=== PATIENT | female | born 1975 | race Two or more races ===

== ENCOUNTER 2024-09-03 10:04 | Emergency (ER) | payer BC, OTHER, SELFPAY ==
--- NOTE | 2024-09-03 | XR_ITS ---
MRI abdomen, without contrast. MRCP Date and time of exam: September 03, 2024 1807 hrs. Indications: Post cholecystectomy, persistent epigastric pain one month, enlarged common bile duct on CT abdomen pelvis study today Technique: Multiple axial and coronal images of the abdomen have been obtained with the Siemens 1.5T MRI scanner. Images obtained included T1 weighted transverse images, T2-weighted transverse images, T2-weighted transverse images fat-suppressed, T2 weighted haste fat suppressed transverse images, T1 weighted images, in and out of phase images, T2-weighted coronal images, breath hold, T2 weighted haze coronal images as well as T2 weighted coronal thick slab images, MRCP. Findings: Liver is irregular in contour with intrahepatic biliary tract dilatation Absent gallbladder Enlarged common bile duct common hepatic duct 12 mm Abrupt termination of the distal common bile duct, consider impacted stone or stricture, clinical correlation advised Negative for pancreatitis Spleen is not enlarged No hydronephrosis Impression: Abnormal extra hepatic biliary tract dilatation with abrupt termination of the distal common bile duct, consider impacted stone in the common bile duct or stricture Recommend ERCP follow-up and stent placement
[2024-09-03 10:06] VITALS: BMI 36.6
[2024-09-03 10:22] VITALS: BP 138/93; PULSE 100; RESP 18; TEMP 37.8; O2SAT 96; BMI 36.4
--- NOTE | 2024-09-03 10:40 | XR_ITS ---
Examination: CT abdomen and pelvis without contrast. Coronal 3-D reconstructions. Sagittal 2-D reconstructions. Date and time of exam:September 03, 2024 1236 hours INDICATIONS: Epigastric pain beginning one week ago CTDI: vol (mGy): 14.9 DLP: (mGycm): 856 Technique: Axial images of the abdomen have been obtained, 3 mm slice thickness Intravenous contrast material has not been administered. Low dose protocols were performed. One or more of the following dose reduction techniques were used; automated exposure control, adjustment of the mA and/or KV according to patient size, use of iterative reconstruction technique. Findings: Fatty infiltration throughout the liver Absent gallbladder Spleen is not enlarged Common bile duct is prominent 11 mm No renal or ureteral calculi, no hydronephrosis Aorta normal size 6 mm fat-containing umbilical hernia No pericecal inflammatory change Normal appendix No pelvic mass Contracted urinary bladder IMPRESSION: Abnormally enlarged common bile duct, recommend hepatobiliary sonography follow-up
--- NOTE | 2024-09-03 10:40 | EKG_ITS ---
[facility] Test Date: 2024-09-03 Pat Name: ROBIN DOMÍNGUEZ Department: Room: - Gender: Female System Admin: : 1975 Requested By: Hi Nolen Order Number: [id number] Reading MD: Hi Nolen Measurements Intervals [place] Rate: 90 P: 32 [place]: 153 QRS: 3 QRSD: 82 T: 10 QT: 338 QTc: 414 Interpretive Statements SINUS RHYTHM POSSIBLE ANTERIOR MYOCARDIAL INFARCTION , PROBABLY OLD [30 ms Q WAVE IN V3/V4, OR R < 0.2 mV IN V4] No previous ECG available for comparison /[id number]/[email or web address]/[id number].pdf
--- NOTE | 2024-09-03 10:53 | PD.EDRME ---
Rapid Medical Screening Exam E Arrival date/time: 09/03/24 10:04 48-year-old female with no known medical history presents to the emergency room with a chief complaint of epigastric 10 out of 10 pain that radiates all throughout her abdomen and her chest. Patient states she is being treated by her primary care provider for gastritis but nothing has worked. Today when she called her primary care provider she was sent to the emergency room for further testing. I have greeted and performed a focused initial assessment of this patient. A comprehensive ED assessment and evaluation of the patient, analysis of all test results, and completion of the medical decision making process will be conducted by additional ED providers. Chief Complaint: Chest Pain Time Seen by Provider: 09/03/24 10:30 Vital signs: Vital Signs Temperature 100.1 F 09/03/24 10:22 Pulse Rate 100 09/03/24 10:22 Respiratory Rate 18 09/03/24 10:22 Blood Pressure 138/93 H 09/03/24 10:22 Pulse Oximetry (%) 96 09/03/24 10:22 Oxygen Delivery Method Room Air 09/03/24 10:22 Vital signs reviewed by provider: Yes
[2024-09-03 11:36] LABS: Collection Type, Urine Clean Catch
[2024-09-03 11:43] LABS: HCG Qualitative,Urine Negative
[2024-09-03 11:52] LABS: Basophils % (Auto) 0 % (0-2.5); Eosinophils % (Auto) 0 % (0-10); Hemoglobin 14.4 g/dL (12.0-16.0); Immature Granulocytes % (Auto) 0 % (0-0); Immature Granulocytes Auto 0.04 Thou/mm3 (0.00-0.00); Lymphocytes # (Auto) 0.6 Thou/mm3 (1.0-4.8); Lymphocytes % (Auto) 5 % (10-50); Mean Corpuscular HGB Conc 33.5 g/dl (31.0-37.0); Mean Corpuscular Hemoglobin 28.6 pg (25.0-35.0); Mean Corpuscular Volume 85 fL (80-100); Monocytes # (Auto) 0.7 Thou/mm3 (0.0-0.8); Monocytes % (Auto) 5 % (0-12); Neutrophils # (Auto) 11.8 Thou/mm3 (1.8-7.7); Neutrophils % (Auto) 89 % (37-80); Nucleated Red Blood Cell % 0 /100 WBC (0); Platelet Count 342 Thou/mm3 (140-440); RDW Standard Deviation 41.9 fL (36.4-46.3); Red Blood Count 5.04 Miln/mm3 (4.00-5.20); White Blood Count 13.2 Thou/mm3 (3.6-11.0)
[2024-09-03 11:53] LABS: B-Type Natriuretic Peptide < 20 pg/mL (0-100)
[2024-09-03 11:56] LABS: Bilirubin,Urine 4+ (Negative); Blood,Urine 1+ (Negative); Color,Urine Drk-Yellow (Lt Yel-Yel); Glucose, Urine Negative (Negative); Ketones,Urine Negative (Negative); Leukocyte Esterase,Urine Negative (Negative); Nitrite,Urine Negative (Negative); Protein,Urine 1+ (Neg - Trace); RBC,Urine 3 /hpf (0-3); Specific Gravity,Urine 1.026 (1.001-1.035); Squamous Epithelial Cell,Urine 10 /hpf (0-5); WBC,Urine 6 /hpf (0-5)
[2024-09-03 12:10] LABS: Alanine Aminotransferase 491 U/L (10-49); Albumin, Serum 4.9 gm/dL (3.5-5.0); Albumin/Globulin Ratio 1.5 (1.2-2.2); Alkaline Phosphatase 1123 U/L (46-116); Anion Gap 9 (7-16); Aspartate Amino Transferase 291 U/L (0-34); BUN/Creatinine Ratio 15 Ratio (12-20); Bilirubin,Total 8.1 mg/dL (0.3-1.2); Blood Urea Nitrogen 12 mg/dL (9-23); Calcium 9.9 mg/dL (8.3-10.6); Calcium (Corrected) 9.9 mg/dL (8.5-10.1); Carbon Dioxide 27.5 mMol/L (20.0-31.0); Chloride 100 mMol/L (98-107); Creatinine (Component) 0.8 mg/dL (0.6-1.3); Globulin 3.2 gm/dL (2.3-3.5); Glucose 133 mg/dL (74-106); Lipase 40 U/L (12-53); Osmolality,Calculated 273 (275-295); Potassium 4.4 mMol/L (3.4-5.1); Sodium 136 mMol/L (136-145); Total Protein 8.1 gm/dL (5.7-8.2); Troponin I < 0.002 ng/mL (0.0-0.045); eGFR > 60 See Note
[2024-09-03 12:31] LABS: Clarity,Urine Hazy (Clear/Hazy)
--- NOTE | 2024-09-03 14:59 | PD.EDABDPN ---
ED Abdominal Pain RME/HPI General Chief Complaint: Chest Pain Stated complaint: CHEST PAIN X1MO WITH COUGH, WANTS XRAY/BLOOD WORK Time seen by provider: 09/03/24 10:30 Arrival date/time: 09/03/24 10:04 RME / HPI RME / HPI narrative: 48-year-old female patient with no significant past medical history, s/p cholecystectomy, was brought in for evaluation regarding epigastric pain. She been having epigastric pain for the last 1 month, getting worse for the last 1 week, at this time it continues, severity moderate. Patient was seen by PCP and was started on Protonix thinking it was gastritis however nothing is working. Patient denies any fever denies any vomiting denies any other complaints no medication was taken prior to arrival. Related Data Allergies Allergy/AdvReac Type Severity Reaction Status Date / Time No Known Drug Allergies Allergy Unknown Verified 09/03/24 10:06 Review of Systems Review of Systems Narrative Review of Systems: Review of system reviewed and within normal limits except mentioned in HPI ED Exam Narrative Physical exam: VITAL SIGNS: Reviewed. GENERAL APPEARANCE: Alert and interactive, follows commands, no acute distress, HEAD AND FACE: Non-traumatic. ENT: PERRL, pink conjunctivitis, eyelid no trauma, Mucous membrane moist. NECK: Supple, nontender, no nuchal rigidity. CHEST: No tenderness, no crepitus, no paradoxical movement, no retractions. LUNGS: Clear, well ventilated, symmetric, no rales, no wheezing, no ronchi, no stridor, good breath sounds bilaterally. HEART: Regular rate, regular rhythm, no murmur, no gallops. ABDOMEN: Soft, positive bowel sounds, nondistended, no guarding, epigastric tenderness, no rebound, no masses, RECTAL: Deferred. GENITAL: Deferred. NEUROLOGICAL: Gross motor function intact sensory function intact, Appropriate for age. MUSCULOSKELETAL: low back nontender, full range of motion. EXTREMITIES: Nontender, full range of motion. SKIN: Color pink, dry, no rash, no lacerations, no abrasions, no contusions. LYMPHATICS: Deferred. Course Quality Measures none Orders Category Date Time Status EKG (ED ONLY) *Do not use* NOW Care 09/03/24 10:40 Completed MRI Screening NOW Care 09/03/24 14:[address] abdomen pelvis wo con Stat Exams 09/03/24 10:40 Completed EKG (ED Only) Stat Exams 09/03/24 10:40 Draft MR MRCP Stat Exams 09/03/24 Completed BNP [B-Type Natriuretic Peptide] Stat Lab 09/03/24 11:01 Completed CBC Stat Lab 09/03/24 11:01 Completed CMP [Comprehensive Metabolic Panel] Stat Lab 09/03/24 11:01 Completed HCG Qualitative,Urine Stat Lab 09/03/24 11:27 Completed Lipase Stat Lab 09/03/24 11:01 Completed Troponin I Stat Lab 09/03/24 11:01 Completed UA [Urinalysis] Stat Lab 09/03/24 11:27 Completed Urine Culture Stat Lab 09/03/24 11:27 Received Ketorolac Inj [Toradol Inj] Med 09/03/24 14:57 Discontinued 30 mg IM X1 ONE Vital Signs Vital signs: Vital Signs Temperature 100.1 F 09/03/24 10:22 Pulse Rate 100 09/03/24 10:22 Respiratory Rate 18 09/03/24 10:22 Blood Pressure 138/93 H 09/03/24 10:22 Pulse Oximetry (%) 96 09/03/24 10:22 Oxygen Delivery Method Room Air 09/03/24 10:22 Abdominal Pain MDM MDM Narrative MDM Narrative:: 48-year-old female patient with no significant past medical history, s/p cholecystectomy, was brought in for evaluation regarding epigastric pain. She been having epigastric pain for the last 1 month, getting worse for the last 1 week, at this time it continues, severity moderate. Patient was seen by PCP and was started on Protonix thinking it was gastritis however nothing is working. Patient denies any fever denies any vomiting denies any other complaints no medication was taken prior to arrival. CBC showed leukocytosis 13 point CMP significant for total bili of 8.1 AST of 291 ALT of 491 alkaline phos of 1123. Urinalysis no UTI. MRCP showed Abnormal extra hepatic biliary tract dilatation with abrupt termination of the distal common bile duct, consider impacted stone in the common bile duct or stricture Recommend ERCP follow-up and stent placement Patient is to be transferred with ERCP capability Hospital. Patient AMA from the emergency room Patient data External records reviewed:: None Clinical information provided by:: patient and family Social determinants that could affect healthcare access:: none Patient has the following chronic illnesses:: None How is presenting disease/condition affected by chronic disease/condition?: no chronic disease Evaluation data The following diagnostics were reviewed and interpreted by me:: lab results and radiology exam(s) Lab and/or radiology exams considered but not ordered:: None Interpretation Summary: See results in [facility] Medications / Prescriptions Medications or Prescriptions considered but not ordered:: None Medication administrations:: Medication Administration History Discontinued Medications Ketorolac Tromethamine (Ketorolac Inj 60 Mg/2 Ml Vial) 30 mg IM X1 ONE Stop: 09/03/24 14:58 Last Admin: 09/03/24 15:20 Dose: 30 mg Documented By: SILVIA Toradol IM Consultations Consultation(s) initiated? (list below): No Diagnosis Differential diagnosis abdominal pain: abdominal pain and constipation Most likely diagnosis given after review of the tests above:: Obstructive jaundice, abdominal pain Admission Indicated Admission indicated?: indicated (Patient AMA) Admission Request Was there a request for admission?: No Disposition Plan Disposition Plan: other (specify) Discharge Attestation Discharge Attestation: Pt has normal mental status and adequate capacity to make medical decisions. Oriented x 4. The patient refuses evaluation and treatment and wants to be discharged. The risks have been explained to the patient, including progression of possible worsening of current disease, worsening illness, chronic pain, permanent disability and . The benefits of evaluation and treatment have also been explained, including the availability and proximity of nurses, physicians, monitoring, diagnostic testing, and treatments. The patient was able to understand and state the risks and benefits of AMA.Patient had the opportunity to ask questions about their medical condition. He left hospital against medical advice. Discharge Plan Plan Patient Disposition: Left Against Medical Advice Prescriptions/Referrals Referrals: Adin Morrell MD [Primary Care Provider] - In 1 week Problem List Clinical Impression: Acute epigastric pain, Obstructive jaundice Patient/Caregiver Discharge Instructions Print Language: Nigerian Stand Alone Forms: [employer] Award Info., Patient Portal Info Letter
[2024-09-03] MEDS: KETOROLAC INJ 60 MG/2 ML VIAL 30 MG IM (15:20)
[2024-09-03 19:14] VITALS: BP 144/86; PULSE 100; RESP 18; TEMP 37.5; O2SAT 98
== END 2024-09-03 20:03 | disposition left against medical advice (07) ==
PROVIDERS: Nurse Practitioner Family; Emergency Provider Emergency Medicine; PCP Internal Medicine
DX: K83.1 Obstruction of bile duct (principal); Z53.29 Procedure and treatment not carried out because of patient's decision for other reasons; R10.13 Epigastric pain
CPT/HCPCS: 36415; 74176; 80053; 81001; 81025; 83690; 83880; 84484; 85025; 87086; 93005; 96372; 99284; J1885; S8037; 74181

== ENCOUNTER → 2024-09-14 | Outpatient (CLI) | payer BC, OTHER, SELFPAY ==
[2024-09-14 16:25] LABS: Basophils % (Auto) 0 % (0-2.5); Eosinophils # (Auto) 0.1 Thou/mm3 (0.0-0.5); Eosinophils % (Auto) 2 % (0-10); Hematocrit 35.2 % (36.0-46.0); Immature Granulocytes % (Auto) 0 % (0-0); Immature Granulocytes Auto 0.01 Thou/mm3 (0.00-0.00); Lymphocytes % (Auto) 28 % (10-50); Mean Corpuscular HGB Conc 34.1 g/dl (31.0-37.0); Mean Corpuscular Hemoglobin 28.8 pg (25.0-35.0); Mean Corpuscular Volume 85 fL (80-100); Monocytes # (Auto) 0.5 Thou/mm3 (0.0-0.8); Monocytes % (Auto) 6 % (0-12); Neutrophils # (Auto) 4.7 Thou/mm3 (1.8-7.7); Neutrophils % (Auto) 64 % (37-80); Nucleated Red Blood Cell % 0 /100 WBC (0); Platelet Count 393 Thou/mm3 (140-440); RDW Standard Deviation 42.4 fL (36.4-46.3); Red Blood Count 4.16 Miln/mm3 (4.00-5.20); White Blood Count 7.3 Thou/mm3 (3.6-11.0)
[2024-09-14 16:36] LABS: Alanine Aminotransferase 174 U/L (10-49); Albumin, Serum 4.2 gm/dL (3.5-5.0); Alkaline Phosphatase 631 U/L (46-116); Anion Gap 7 (7-16); Aspartate Amino Transferase 64 U/L (0-34); BUN/Creatinine Ratio 20 Ratio (12-20); Bilirubin,Direct 0.5 mg/dL (0.0-0.3); Bilirubin,Total 0.8 mg/dL (0.3-1.2); Blood Urea Nitrogen 20 mg/dL (9-23); Calcium 8.7 mg/dL (8.3-10.6); Carbon Dioxide 28.8 mMol/L (20.0-31.0); Chloride 106 mMol/L (98-107); Glucose 105 mg/dL (74-106); Osmolality,Calculated 285 (275-295); Phosphorous 3.5 mg/dL (2.4-5.1); Potassium 4.2 mMol/L (3.4-5.1); Sodium 142 mMol/L (136-145); Total Protein 6.8 gm/dL (5.7-8.2); eGFR > 60 See Note
== END | disposition home or self-care (01) ==
LOC: COPL 15:48
PROVIDERS: PCP Internal Medicine; Referring Provider Internal Medicine; Visit Provider Internal Medicine
DX: I11.0 Hypertensive heart disease with heart failure (principal)
CPT/HCPCS: 36415; 80048; 80076; 84100; 85025

== ENCOUNTER → 2024-10-13 | Outpatient (CLI) | payer BC, OTHER, SELFPAY ==
[2024-10-13 16:58] LABS: Alanine Aminotransferase 33 U/L (10-49); Albumin, Serum 4.4 gm/dL (3.5-5.0); Alkaline Phosphatase 206 U/L (46-116); Aspartate Amino Transferase 27 U/L (0-34); Bilirubin,Direct 0.2 mg/dL (0.0-0.3); Bilirubin,Total 0.5 mg/dL (0.3-1.2); Total Protein 6.6 gm/dL (5.7-8.2)
== END | disposition home or self-care (01) ==
PROVIDERS: PCP Internal Medicine; Referring Provider Internal Medicine; Visit Provider Internal Medicine
DX: I11.0 Hypertensive heart disease with heart failure (principal)
CPT/HCPCS: 36415; 80076